=== PATIENT | female | born 1965 | race Caucasian/White ===

== ENCOUNTER 2019-04-17 11:00 | Inpatient (IN) ==
[2019-04-17] MEDS ORDERED: ALUMINUM/MAGNESIUM SUSP 30 ML UDC PO PRN (11:11)
[2019-04-17] MEDS ORDERED: ONDANSETRON INJ 2 MG/ML 2 ML VIAL IV PRN (11:11)
--- NOTE | 2019-04-17 11:18 | History & Physical Report ---
Date of Service April 17, 2019 date of surgery: 04/18/19 Assessment & Plan (1) Wound drainage: Na underwent bilateral TKA in April 2018 and initially did well, a couple months ago started having increased pain and was noted to have stretched her medial retinaculum, she underwent medial retinaculum repair on 03/09/19. 4 days ago noted serous drainage from her incision, she also has mild redness about the incision, discussed care with dr nolasco, will admit for IV antibiotics, I&D with possible poly exchange left knee plan for 04/18/19 at [facility]. will order CBC, BMP, ESR and CRP. NPO after MN tonight. (2) Status post total left knee replacement: History of Present Illness Chief Complaint: left knee drainage Primary Care Provider: Davie Calderón Ms Coffman is a 53 year old female who complains of left knee drainage that started about 4 days ago, she underwent bilateral TKA in April of 2018 and then medial retinaculum repair in February of 2019, overall initially did well and progressed well in PT. however about 4 days ago noted drainage from the middle aspect of her incision. She presents with Drainage, swelling, and stiffness on the left side. She is in post op brace, locked in full extension for day time ambulation. Pt is wearing a knee sleeve only for bed time to help control the swelling, which has decreased since last visit, however now drainage has started. Pt was to start PT today however PT requested pt be evaluated due to increased drainage over the past 4 days. she currently denies fever, chills or sweats. Allergies Allergy/AdvReac Type Severity Reaction Status Date / Time No Known Allergies Allergy Unverified 04/19/18 06:57 Home Medications Home Medications Medication Instructions Recorded Confirmed Type ACETAMINOPHEN (SB NON-ASPIRIN 1,000 mg PO Q8 #63 tab 04/21/18 Rx EXTRA STRE) Past Med/Surg History Medical History No active medical problems Surgical History History of arthroscopy of both knees Hx of cholecystectomy Status post total bilateral knee replacement Family History Unknown No problems noted. Social History marital status: Feels Safe at Home: Yes Hx Alcohol Use: Yes Hx Substance Use: No Review of Systems Review of Systems: All systems reviewed & are unremarkable except as noted in HPI & below Constitutional: no fever, no chills and no sweats Respiratory: no cough and no dyspnea Cardiovascular: no chest pain, no dyspnea and no orthopnea Gastrointestinal: no abdominal pain, no nausea and no vomiting Musculoskeletal: as per Subjective / HPI Physical Exam Physical Exam: HT: 65 in Wt: 155 lb BP: 122/82 Pulse: 78 Constitutional: WD/WN, vitals as above no acute distress Respiratory: normal respiratory effort, lungs clear to auscultation no respiratory distress, no labored breathing and does not use accessory muscles Cardiovascular: RRR, no murmur, no edema Gastrointestinal (Abdomen): normal bowel sounds, soft, nontender, no hepatosplenomegaly Musculoskeletal: left knee: active ROM 0/0/120, knee stable with valgus and varus stress, calf SNT, NVDI. able to do straight leg raise without lag. a 2mm opening in the incision with serous drainage noted, mild erythema noted around the proximal incision area, no pre patellar swelling and only mild knee effusion. no significant tenderness on exam. Results & Data Diagnostic Findings Radiographs of left knee reveal a cemented total knee replacement arthroplasty in acceptable position and alignment. No evidence of loosening or loss of fixation is noted. The patella is tracking well. ASSESSMENT: status post total knee replacement.
[2019-04-17 14:24] LABS: Basophils # (auto) 0.03 K/uL (0-0.2); Basophils % (auto) 0.2 %; Eosinophils # (auto) 0.14 K/uL (0-0.5); Eosinophils % (auto) 1.1 %; Hematocrit (blood only) 36.5 % (37-47); Hemoglobin 12.5 g/dL (12.0-16.0); Immature Granulocytes # (auto) 0.04 K/uL (0.00-0.02); Immature Granulocytes % (auto) 0.3 %; Lymphocytes # (auto) 2.96 K/uL (1.2-3.4); Lymphocytes % (auto) 23.6 %; Mean Corpuscular Hgb Conc 34.2 g/dL (32-36); Mean Corpuscular Volume 89.9 fL (80-100); Mean Platelet Volume 8.4 fL (7.4-10.4); Monocytes % (auto) 5.6 %; Neutrophils # (auto) 8.65 K/uL (1.4-6.5); Neutrophils % (auto) 69.2 %; Platelet Count 576 K/uL (130-400); RDW Coefficient of Variation 13.2 % (11.5-14.5); RDW Standard Deviation 43.2 fL (36.4-46.3); Red Blood Count 4.06 M/uL (4.2-5.4); White Blood Count 12.52 K/uL (4.8-10.8)
[2019-04-17 15:00] LABS: BUN Creatinine Ratio 15.4 (10-20); C Reactive Protein 6.71 mg/dl (0-0.29); Calcium 9.3 mg/dl (8.5-10.1); Creatinine Clr Calc Pharmacy 72.1 ml/min; Est GFR (Non-African American) 71.6; Potassium 3.5 mmol/L (3.5-5.1)
[2019-04-17] MEDS: CEFAZOLIN 1000MG 1,000 MG/7.5 ML SYR IV SCH ×2 (15:04→21:01)
[2019-04-17] MEDS: PATIENT'S HEIGHT AND/OR WEIGHT NEEDED SCH ×3 (15:26→17:57)
[2019-04-17] MEDS: D5W AND 1/2NSS 1,000 ML IV SCH (18:26)
[2019-04-18] MEDS: CEFAZOLIN 1000MG 1,000 MG/7.5 ML SYR IV SCH ×3 (06:01→21:37)
--- NOTE | 2019-04-18 12:47 | Anesthesiology Consultation ---
Date of Service April 18, 2019 Assessment & Plan Chart Review Chart Review: Acceptable Risk for Surgery Consults Requested none ASA ASA2 Proposed Anesthesia Anesthesia Type: General Risk / Benefits Reviewed With: PT / POA / Parent / Guardian, Accepts Plan and Informed Consent Obtained History Surgery Operation Date: 04/18/19 07:00 Proposed Procedures p Left Knee Incision and Drianage Superficial Wound S/P TKA, - Ovi Caceres DO s Possible Poly Exchange - Ovi Caceres DO Height/Weight Height: 1.65 m Weight: 74.162 kg Allergies Allergy/AdvReac Type Severity Reaction Status Date / Time No Known Allergies Allergy Unverified 04/18/19 13:11 Medications Home Medications Medication Instructions Recorded Confirmed Last Taken ACETAMINOPHEN (SB NON-ASPIRIN 1,000 mg PO Q8 PRN 04/17/19 Unknown EXTRA STRE) celecoxib [Celebrex] 200 mg PO BID 04/17/19 04/17/19 04/17/19 08:00 200 Active Medications Generic Name Dose Route Start Last Admin Trade Name Freq PRN Reason Stop Dose Admin Dextrose/Sodium Chloride 1,000 mls @ 15 mls/hr 04/17/19 11:15 04/17/19 18:26 D5w And 1/2nss IV 05/17/19 11:14 15 mls/hr .Q24H TA Administration Cefazolin Sodium 1,000 mg in 7.5 mls @ 2.5 mls/min 04/17/19 14:00 04/18/19 06:01 Ancef 1000mg IV 04/19/19 13:59 2.5 mls/min Q8H TA Administration NPO Date Last Intake of Fluids: 04/17/19 Time Last Intake of Fluids: 19:30 Date Last Intake of Solids: 04/17/19 Time Last Intake of Solids: 19:30 Past Medical History Medical History No active medical problems Exercise / Class Metabolic Activity II 4-5 Yardwork/Stairs/Walk up hill Past Family History Family History Unknown No problems noted. Past Surgical History Surgical History History of arthroscopy of both knees Hx of cholecystectomy Status post total bilateral knee replacement 04/2018 with spinal and pnb Past Anesthesia History No Hx of Anesthesia Complications and No Family Hx of Anesthesia Complications History of PONV No Hx of PONV and No Hx of Motion Sickness Social History Smoking Status: Current every day smoker tobacco type: cigarettes Smoking cigarettes per day: 10 x 30 years Do You Dip or Chew Tobacco: No Hx Alcohol Use: Yes Alcohol type: beer alcohol intake frequency: holidays/special occasions only Hx Substance Use: No Review of Systems Respiratory: no cough and no dyspnea Cardiovascular: no chest pain and no dyspnea on exertion Gastrointestinal: no heartburn, no nausea and no vomiting Physical Exam Vital Signs Last Vital Signs Temp 36.9 C 04/18/19 07:11 Pulse 55 L 04/18/19 07:11 Resp 16 04/18/19 07:11 BP 108/69 04/18/19 07:11 Pulse Ox 96 04/18/19 07:11 ENMT Mouth: no TMJ abnormality and no TMJ clicking Thyromental Distance: < 3.5 Finger Breadths Mallampati Class: II Mouth / Teeth: 1. MIssing crown Neck normal visual inspection; neck extension not limited Respiratory Auscultation: lungs clear to auscultation bilaterally Cardiovascular Rate/Rhythm: regular rate and regular rhythm Psychiatric Orientation: alert and oriented x 3 Testing Laboratory Results 04/17/19 14:14 04/17/19 14:14 Blood Type O Positive 04/17/19 14:14 Antibody Screen NEGATIVE 04/17/19 14:14
[2019-04-18] MEDS ORDERED: BACITRACIN INJ 50,000 UNIT VIAL ONE (12:58)
[2019-04-18] MEDS ORDERED: LIDOCAINE HCL 2% 2 ML VIAL/AMP(20MG/ML) INFIL ONE (13:00)
[2019-04-18] MEDS ORDERED: PROPOFOL IV EMULSION 10 MG/ML 20 ML VIAL IV ONE (13:00)
[2019-04-18] MEDS ORDERED: ONDANSETRON INJ 2 MG/ML 2 ML VIAL ONE (13:00)
[2019-04-18] MEDS ORDERED: MIDAZOLAM HCL 1 MG/ML 2ML VIAL ONE (13:00)
[2019-04-18] MEDS ORDERED: fentaNYL citrate 100 MCG/2 ML VIAL ONE (13:00)
[2019-04-18] MEDS ORDERED: HYDROmorphone INJ 1 MG/ML SYRINGE IV PRN (13:15)
[2019-04-18] MEDS ORDERED: ONDANSETRON INJ 2 MG/ML 2 ML VIAL IV PRN (13:15)
[2019-04-18] MEDS ORDERED: PROMETHAZINE HCL 12.5 MG in SODIUM CHLORIDE 0.9% 50 ML IV PRN (13:15)
[2019-04-18] MEDS ORDERED: PHENYLEPHRINE 100MCG/ML 5ML SYR IV PRN (13:15)
[2019-04-18] MEDS ORDERED: ATROPINE SULFATE 0.1 MG/ML 10ML SYR IV PRN (13:15)
[2019-04-18] MEDS ORDERED: ePHEDrine sulfate 50 MG/ML AMP IV PRN (13:15)
--- NOTE | 2019-04-18 13:20 | History & Physical Bridge Note ---
Date of Service April 18, 2019 History & Physical Bridge Note I have examined the patient, reviewed the History & Physical and in the interval since the performance of the History & Physical I have noted the following changes of clinical significance: no changes noted
[2019-04-18] MEDS: D5W AND 1/2NSS 1,000 ML IV SCH (13:47)
--- NOTE | 2019-04-18 14:16 | Operative Report ---
Post Operative Report Pre & Post Diagnosis Operation Date: 04/18/19 07:00 Pre-Op Diagnosis: Superficial Wound Left Knee Post-Op Diagnosis: Superficial Wound Left Knee Procedure Operation Date: 04/18/19 07:00 Actual Procedures p Left Knee Incision and Drianage Superficial Wound S/P TKA,(Left) - DO Ovi Carpio DO Surgeon Ovi Caceres DO Manager [employer] None Estimated Blood Loss 5 Findings Consistent with Post-Op Diagnosis Superficial prepatellar infection with no communication to deep joint left total knee arthroplasty Specimens None culture superficial wound Complications none Disposition Accompanied Patient To Recovery: No Disposition: Recovery Room Indications Patient presents with progressive serous drainage from the proximal one third of the incision left knee status post VMO repair for washout possible poly-change pending findings times surgery times surgery patient was noted to have superficial collection of fluid only no communication to the deep knee joint was noted patient peripherally had no pain and had no issues with range of motion this appeared to be all localized in the subcutaneous tissues and a small seroma Description of Procedure After initiation of general anesthesia the left lower extremity was incision made in the region of the proximal third of the incision dissecting down through the subcutaneous tissues there was a collection of serous fluid that did not communicate with the deep knee joint the wound was irrigated with copious sterile saline solution via 9 L of bacitracin impregnated sterile saline wound was irrigated superficial sutures were removed the deep sutures of FiberWire that were visible or removed no communication with the joint was noted the wound was irrigated with copious muscle sterile saline solution subcu was closed with 2-0 Vicryl skin was closed with skin clips sterile compressive dressings placed patient taken recovery in stable condition. I attest to the content of the Intraoperative Record and any orders documented therein. Any exceptions are noted below.
[2019-04-18] MEDS: fentaNYL citrate 100 MCG/2 ML VIAL IV PRN ×4 (14:23→14:38)
--- NOTE | 2019-04-18 15:03 | Anesthesiology Progress Note ---
Date of Service April 18, 2019 Anesthesia Post Procedure Vital Signs Vital Signs: Temp Pulse Resp BP BP Pulse Ox 04/18/19 14:50 48 L 12 107/59 L 99 04/18/19 14:40 50 L 18 113/70 100 04/18/19 14:30 72 12 118/75 100 04/18/19 14:20 36.5 C 78 16 122/86 100 04/18/19 13:19 37.0 C 60 18 124/70 97 04/18/19 07:11 36.9 C 55 L 16 108/69 96 04/17/19 23:04 36.7 C 69 16 119/71 96 Pain Intensity Left Knee: Pain Intensity: 5 Transfer of Care Handoff Completed per policy Notes Mental Status: alert / awake / arousable Patient Amnestic to Procedure: Yes Nausea / Vomiting: adequately controlled Pain: adequately controlled Airway Patency, RR, SpO2: stable & adequate BP & HR: stable & adequate Hydration State: stable & adequate Anesthetic Complications: no major complications apparent
[2019-04-18] MEDS ORDERED: BISACODYL 10 MG SUPP PR PRN (15:12)
[2019-04-18] MEDS ORDERED: NALOXONE HCL 0.4 MG/1 ML VIAL/CARP IV PRN (15:12)
[2019-04-18] MEDS ORDERED: HYDROmorphone INJ 0.5 MG/0.5 ML SYR IV PRN (15:12)
[2019-04-18] MEDS ORDERED: MAGNESIUM HYDROXIDE SUSP 30 ML UDC PO PRN (15:12)
[2019-04-18] MEDS: OXYCODONE HCL IR 5 MG TAB (IMMEDIATE RELEASE) PO PRN ×2 (15:49→21:36)
[2019-04-18] MEDS: SODIUM CHLORIDE 0.9% 1000ML 1,000 ML IV SCH ×2 (15:50→23:13)
[2019-04-18] MEDS: KETOROLAC 30 MG/ML VIAL IV SCH ×2 (17:00→23:14)
[2019-04-18] MEDS: ACETAMINOPHEN 500 MG TAB PO SCH (21:36)
[2019-04-18] MEDS: DOCUSATE SODIUM 100 MG CAP PO SCH (21:37)
[2019-04-18] MEDS: SENNA 8.6 MG TAB PO SCH (21:37)
[2019-04-18] MEDS: ASPIRIN 81 MG ECTAB PO SCH (21:37)
[2019-04-19] MEDS: ACETAMINOPHEN 500 MG TAB PO SCH ×3 (05:35→21:25)
[2019-04-19] MEDS: KETOROLAC 30 MG/ML VIAL IV SCH ×4 (05:35→23:30)
[2019-04-19] MEDS: CEFAZOLIN 1000MG 1,000 MG/7.5 ML SYR IV SCH ×3 (05:36→23:30)
[2019-04-19 07:17] LABS: Hematocrit (blood only) 35.1 % (37-47); Hemoglobin 11.8 g/dL (12.0-16.0); Mean Corpuscular Hgb Conc 33.6 g/dL (32-36); Mean Corpuscular Volume 90.9 fL (80-100); Mean Platelet Volume 8.8 fL (7.4-10.4); Platelet Count 577 K/uL (130-400); RDW Coefficient of Variation 13.3 % (11.5-14.5); RDW Standard Deviation 43.9 fL (36.4-46.3); Red Blood Count 3.86 M/uL (4.2-5.4)
[2019-04-19 07:50] LABS: BUN Creatinine Ratio 17.7 (10-20); Calcium 8.6 mg/dl (8.5-10.1); Creatinine Clr Calc Pharmacy 63.8 ml/min; Est GFR (African American) 71.5; Est GFR (Non-African American) 61.7; Potassium 4.5 mmol/L (3.5-5.1)
--- NOTE | 2019-04-19 08:17 | Anesthesiology Progress Note ---
Date of Service April 19, 2019 Anesthesia Post Procedure Vital Signs Vital Signs: Temp Pulse Pulse Resp BP Pulse Ox 04/19/19 08:08 36.6 C 51 L 16 119/67 97 04/19/19 03:11 36.5 C 69 14 93/59 L 94 04/18/19 22:57 37.0 C 77 16 107/62 95 04/18/19 19:35 36.9 C 64 16 104/60 94 04/18/19 18:07 37.4 C 79 16 118/68 96 04/18/19 17:05 36.9 C 58 L 16 117/60 98 04/18/19 16:14 36.5 C 60 16 102/66 98 04/18/19 15:38 36.5 C 61 16 97/64 L 100 04/18/19 15:10 36.9 C 56 L 16 110/72 99 04/18/19 15:05 47 L 15 101/59 L 98 04/18/19 15:00 36.2 C L 47 L 15 96/61 L 98 04/18/19 14:50 48 L 12 107/59 L 99 04/18/19 14:40 50 L 18 113/70 100 04/18/19 14:30 72 12 118/75 100 04/18/19 14:20 36.5 C 78 16 122/86 100 04/18/19 13:19 37.0 C 60 18 124/70 97 Pain Intensity Left Knee: Pain Intensity: 0 Notes Mental Status: alert / awake / arousable Patient Amnestic to Procedure: Yes Nausea / Vomiting: adequately controlled Pain: adequately controlled Airway Patency, RR, SpO2: stable & adequate BP & HR: stable & adequate Hydration State: stable & adequate Anesthetic Complications: no major complications apparent
[2019-04-19] MEDS: MULTIVITAMIN TAB PO SCH (08:51)
[2019-04-19] MEDS: DOCUSATE SODIUM 100 MG CAP PO SCH ×2 (08:51→21:24)
[2019-04-19] MEDS: ASPIRIN 81 MG ECTAB PO SCH ×2 (08:51→21:24)
[2019-04-19] MEDS: D5W AND 1/2NSS 1,000 ML IV SCH (12:37)
[2019-04-19] MEDS ORDERED: Nursing to Pharmacy Communication ONE (12:37)
--- NOTE | 2019-04-19 15:09 | Orthopedic Progress Note ---
Date of Service April 19, 2019 Assessment & Plan (1) Wound drainage: POD 1 s/p I/D Infected wound s/p Left TKA (Superficial) Cx as noted above. Discussed case with /Manohar Ruiz PAC. Plan to continue IV antibx for now and follow cultures. Will consult ID team as well per Dr Caceres. Continue WBAT with brace. May be OOB as tolerated. Contine DVT Prophylaxis and current pain management. Subjective POD 1 s/p I/D Left knee wound. Pt sitting up in bed. Awake, alert, oriented x 3. No complaints at this time. Pain controlled. Discussed cx results thus far. Physical Exam Physical Exam: Dressings C/D/I. NV intact. Toes mobile. Results & Data Vital Signs (Past 12 Hours) Vital Signs Temp Pulse Resp BP Pulse Ox 04/19/19 08:08 36.6 C 51 L 16 119/67 97 04/19/19 03:11 36.5 C 69 14 93/59 L 94 Diagnostic Findings Microbiology 04/18/19 14:03 Knee,Left Gram Stain - Final 04/18/19 14:03 Knee,Left Aerobic and Anaerobic Culture - Preliminary Staphylococcus aureus Laboratory Results WBC 7.90 K/uL (4.8-10.8) 04/19/19 06:48 RBC 3.86 M/uL (4.2-5.4) L 04/19/19 06:48 Hgb 11.8 g/dL (12.0-16.0) L 04/19/19 06:48 Hct 35.1 % (37-47) L 04/19/19 06:48 MCV 90.9 fL (80-100) 04/19/19 06:48 MCH 30.6 pg (25-34) 04/19/19 06:48 MCHC 33.6 g/dL (32-36) 04/19/19 06:48 RDW Std Deviation 43.9 fL (36.4-46.3) 04/19/19 06:48 RDW Coeff of Amy 13.3 % (11.5-14.5) 04/19/19 06:48 Plt Count 577 K/uL (130-400) H 04/19/19 06:48 MPV 8.8 fL (7.4-10.4) 04/19/19 06:48 Immature Gran % (Auto) 0.3 % 04/17/19 14:14 Neut % (Auto) 69.2 % 04/17/19 14:14 Lymph % (Auto) 23.6 % 04/17/19 14:14 [place] % (Auto) 5.6 % 04/17/19 14:14 Eos % (Auto) 1.1 % 04/17/19 14:14 Baso % (Auto) 0.2 % 04/17/19 14:14 Immature Gran # (Auto) 0.04 K/uL (0.00-0.02) H 04/17/19 14:14 Neut # (Auto) 8.65 K/uL (1.4-6.5) H 04/17/19 14:14 Lymph # (Auto) 2.96 K/uL (1.2-3.4) 04/17/19 14:14 [place] # (Auto) 0.70 K/uL (0.11-0.59) H 04/17/19 14:14 Eos # (Auto) 0.14 K/uL (0-0.5) 04/17/19 14:14 Baso # (Auto) 0.03 K/uL (0-0.2) 04/17/19 14:14 ESR > 90 mm/hr (0-21) H 04/17/19 14:14 Sodium 140 mmol/L (136-145) 04/19/19 06:48 Potassium 4.5 mmol/L (3.5-5.1) D 04/19/19 06:48 Chloride 109 mmol/L (98-107) H 04/19/19 06:48 Carbon Dioxide 27 mmol/L (21-32) 04/19/19 06:48 Anion Gap 4.0 (3-11) 04/19/19 06:48 BUN 18 mg/dl (7-18) 04/19/19 06:48 Creatinine 1.04 mg/dl (0.6-1.2) 04/19/19 06:48 Est Cr Clr Drug Dosing 63.8 ml/min 04/19/19 06:48 Est GFR ( Amer) 71.5 04/19/19 06:48 Est GFR (Non-Af Amer) 61.7 04/19/19 06:48 BUN/Creatinine Ratio 17.7 (10-20) 04/19/19 06:48 Glucose 87 mg/dl (70-99) 04/19/19 06:48 Calcium 8.6 mg/dl (8.5-10.1) 04/19/19 06:48 C-Reactive Protein 6.71 mg/dl (0-0.29) H 04/17/19 14:14 Blood Type O Positive 04/17/19 14:14 Antibody Screen NEGATIVE 04/17/19 14:14
--- NOTE | 2019-04-19 16:00 | Infectious Disease Consult ---
Date of Consultation April 19, 2019 Assessment & Plan (1) Postoperative infection of knee: Patient with superficial appearing infection left knee with Staph aureus, sensitivities pending. Clinical response to cefazolin suggest will be MSSA. Should have sensitivities tomorrow morning, and sjould be able to transition to oral antibiotic. Discussed with orthopedics. Will follow. (2) Staph aureus infection: History of Present Illness Reason for Consultation: Superficial knee wound infection Attending Physician: Ovi Caceres DO History of Present Illness 53-year-old female, smoker but otherwise in good health, he underwent left knee replacement. She subsequently left patellar instability requiring surgical repair. Separately developed redness, swelling, drainage from her surgical incision, and was seen and admitted to the hospital for further management. She required surgical debridement of the finding of what appears to be relatively superficial infection. Patient notes that preoperatively she was started on cefazolin and then noted significant improvement in her local infection prior to surgery. Operative cultures now growing staph aureus, sensitivities are pending. Patient denies any significant associated fever or chills. Otherwise feeling reasonably well apart from knee pain. Allergies Allergy/AdvReac Type Severity Reaction Status Date / Time No Known Allergies Allergy Unverified 04/18/19 13:11 Home Medications Home Medications Medication Instructions Recorded Confirmed Type ACETAMINOPHEN (SB NON-ASPIRIN 1,000 mg PO Q8 PRN 04/17/19 History EXTRA STRE) celecoxib [Celebrex] 200 mg PO BID 04/17/19 04/17/19 History Patient History Medical History No active medical problems Surgical History History of arthroscopy of both knees Hx of cholecystectomy Status post total bilateral knee replacement 04/2018 with spinal and pnb Family History Unknown No problems noted. Social History Preferred Language: Panamanian Communication Ability: Effective Head Grease Maker Required: No Beliefs That Will Affect Care: None marital status: Current Living Situation: Spouse Other Information That Helps Us Care for You: No Feels Safe at Home: Yes Smoking Status: Current every day smoker Tobacco Type: cigarettes Cigarettes Per Day: 10 x 30 years Do You Dip or Chew Tobacco: No Tobacco Cessation Education Requested by Patient: No Hx Alcohol Use: Yes Alcohol type: beer Hx Substance Use: No Review of Systems Review of Systems: All systems reviewed & are unremarkable except as noted in HPI & below Physical Exam Constitutional: WD/WN, vitals as above comfortable; no acute distress Eyes: PERRL, conjunctivae normal, anicteric sclerae ENMT: external ear and nose normal, oropharynx normal Neck: trachea midline, no thyromegaly neck nontender Respiratory: normal respiratory effort, lungs clear to auscultation normal percussion; does not use accessory muscles Cardiovascular: Rate/Rhythm: regular rate and regular rhythm Heart Sounds: normal S1 and normal S2; no gallop, no murmur and no cardiac rub Vessels: normal peripheral pulses; no JVD Gastrointestinal (Abdomen): normal bowel sounds, soft, nontender, no hepatosplenomegaly Musculoskeletal: no cyanosis or clubbing, extremities motor strength 5/5 Spine: thoracic spine normal to inspection and lumbar spine normal to inspection; no cervical spinal tenderness Skin: no rashes, warm and dry normal turgor surgical wound dressing in place Neurologic: patellar DTR's 2+ bilat, sensation intact no focal motor deficits Psychiatric: A+Ox3, euthymic affect Orientation: cooperative Lymphatic: no cervical or axillary lymphadenopathy no inguinal lymphadenopathy Results & Data Vital Signs (Past 12 Hours) Vital Signs Temp Pulse Resp BP Pulse Ox 04/19/19 08:08 36.6 C 51 L 16 119/67 97 Laboratory Results Short CBC 04/19/19 Range/Units 06:48 WBC 7.90 (4.8-10.8) K/uL Hgb 11.8 L (12.0-16.0) g/dL Hct 35.1 L (37-47) % Plt Count 577 H (130-400) K/uL BMP 04/19/19 06:48 Sodium 140 Potassium 4.5 D Chloride 109 H Carbon Dioxide 27 BUN 18 Creatinine 1.04 Glucose 87 Calcium 8.6 Diagnostic Findings Microbiology 04/18/19 14:03 Knee,Left Gram Stain - Final 04/18/19 14:03 Knee,Left Aerobic and Anaerobic Culture - Preliminary Staphylococcus aureus
[2019-04-19] MEDS: SENNA 8.6 MG TAB PO SCH (21:24)
[2019-04-20] MEDS: ACETAMINOPHEN 500 MG TAB PO SCH ×2 (05:44→13:45)
[2019-04-20] MEDS: KETOROLAC 30 MG/ML VIAL IV SCH ×2 (05:44→11:49)
--- NOTE | 2019-04-20 08:02 | Orthopedic Progress Note ---
Date of Service April 20, 2019 Assessment & Plan (1) Wound drainage: POD 2 s/p I/D Infected wound s/p Left TKA (Superficial) Cx as noted above. appreciate dr belcher input, culture Staph aureus, sensitivities pending. as per dr belcher, Clinical response to cefazolin suggest will be MSSA. Should have sensitivities tomorrow morning, and will hopefully be able to transition to oral antibiotic. recheck later today for poss d/c on PO Abx Continue WBAT with brace. May be OOB as tolerated. Contine DVT Prophylaxis and current pain management. Subjective POD 2 s/p I/D Left knee wound. Pt sitting up in bed. Awake, alert, oriented x 3. No complaints at this time. Pain controlled. denies CP/SOB, denies F/Chills Review of Systems Review of Systems: All systems reviewed & are unremarkable except as noted in HPI & below Constitutional: no fever, no chills and no sweats Physical Exam Physical Exam: Vital Signs Temp Pulse Resp BP BP Pulse Ox 04/19/19 23:20 36.5 C 65 16 114/72 96 04/19/19 08:08 36.6 C 51 L 16 119/67 97 Intake and Output 04/19/19 04/20/19 04/20/19 22:59 06:59 14:59 Intake Total 440 / 2822.75 50 / 2822.75 Balance 440 / 2222.75 50 / 2222.75 Intake: Oral 440 / 1185 50 / 1185 Other: # Unmeasured Voi ds 2 1 Constitutional: WD/WN, vitals as above no acute distress Musculoskeletal: left knee dressing clean and dry, neda intact, no drainage, no erythema. calf SNT, NVDI, able to wiggle toes/ankle without pain. no thigh pain Results & Data Vital Signs (Past 12 Hours) Vital Signs Temp Pulse Resp BP Pulse Ox 04/19/19 23:20 36.5 C 65 16 114/72 96 Laboratory Results Laboratory Results WBC 7.90 K/uL (4.8-10.8) 04/19/19 06:48 RBC 3.86 M/uL (4.2-5.4) L 04/19/19 06:48 Hgb 11.8 g/dL (12.0-16.0) L 04/19/19 06:48 Hct 35.1 % (37-47) L 04/19/19 06:48 MCV 90.9 fL (80-100) 04/19/19 06:48 MCH 30.6 pg (25-34) 04/19/19 06:48 MCHC 33.6 g/dL (32-36) 04/19/19 06:48 RDW Std Deviation 43.9 fL (36.4-46.3) 04/19/19 06:48 RDW Coeff of Amy 13.3 % (11.5-14.5) 04/19/19 06:48 Plt Count 577 K/uL (130-400) H 04/19/19 06:48 MPV 8.8 fL (7.4-10.4) 04/19/19 06:48 Immature Gran % (Auto) 0.3 % 04/17/19 14:14 Neut % (Auto) 69.2 % 04/17/19 14:14 Lymph % (Auto) 23.6 % 04/17/19 14:14 [place] % (Auto) 5.6 % 04/17/19 14:14 Eos % (Auto) 1.1 % 04/17/19 14:14 Baso % (Auto) 0.2 % 04/17/19 14:14 Immature Gran # (Auto) 0.04 K/uL (0.00-0.02) H 04/17/19 14:14 Neut # (Auto) 8.65 K/uL (1.4-6.5) H 04/17/19 14:14 Lymph # (Auto) 2.96 K/uL (1.2-3.4) 04/17/19 14:14 [place] # (Auto) 0.70 K/uL (0.11-0.59) H 04/17/19 14:14 Eos # (Auto) 0.14 K/uL (0-0.5) 04/17/19 14:14 Baso # (Auto) 0.03 K/uL (0-0.2) 04/17/19 14:14 ESR > 90 mm/hr (0-21) H 04/17/19 14:14 Sodium 140 mmol/L (136-145) 04/19/19 06:48 Potassium 4.5 mmol/L (3.5-5.1) D 04/19/19 06:48 Chloride 109 mmol/L (98-107) H 04/19/19 06:48 Carbon Dioxide 27 mmol/L (21-32) 04/19/19 06:48 Anion Gap 4.0 (3-11) 04/19/19 06:48 BUN 18 mg/dl (7-18) 04/19/19 06:48 Creatinine 1.04 mg/dl (0.6-1.2) 04/19/19 06:48 Est Cr Clr Drug Dosing 63.8 ml/min 04/19/19 06:48 Est GFR ( Amer) 71.5 04/19/19 06:48 Est GFR (Non-Af Amer) 61.7 04/19/19 06:48 BUN/Creatinine Ratio 17.7 (10-20) 04/19/19 06:48 Glucose 87 mg/dl (70-99) 04/19/19 06:48 Calcium 8.6 mg/dl (8.5-10.1) 04/19/19 06:48 C-Reactive Protein 6.71 mg/dl (0-0.29) H 04/17/19 14:14 Blood Type O Positive 04/17/19 14:14 Antibody Screen NEGATIVE 04/17/19 14:14 Microbiology 04/18/19 14:03 Knee,Left Gram Stain - Final 04/18/19 14:03 Knee,Left Aerobic and Anaerobic Culture - Preliminary Staphylococcus aureus
[2019-04-20] MEDS: CEFAZOLIN 1000MG 1,000 MG/7.5 ML SYR IV SCH ×2 (08:06→15:43)
[2019-04-20] MEDS: MULTIVITAMIN TAB PO SCH (09:01)
[2019-04-20] MEDS: ASPIRIN 81 MG ECTAB PO SCH (09:01)
[2019-04-20] MEDS: DOCUSATE SODIUM 100 MG CAP PO SCH (09:01)
--- NOTE | 2019-04-20 19:55 | Discharge Summary ---
Date of Service date of discharge: April 20, 2019 date of admission: 04/18/19 Admission HPI Per Admitting Provider Ms Coffman is a 53 year old female who complains of left knee drainage that started about 4 days ago, she underwent bilateral TKA in April of 2018 and then medial retinaculum repair in February of 2019, overall initially did well and progressed well in PT. however about 4 days ago noted drainage from the middle aspect of her incision. She presents with Drainage, swelling, and stiffness on the left side. She is in post op brace, locked in full extension for day time ambulation. Pt is wearing a knee sleeve only for bed time to help control the swelling, which has decreased since last visit, however now drainage has started. Pt was to start PT today however PT requested pt be evaluated due to increased drainage over the past 4 days. she currently denies fever, chills or sweats. Principal Diagnosis superficial knee wound left total knee replacement Discharge Exam Vital Signs Temp Pulse Pulse Resp BP BP Pulse Ox 04/20/19 15:30 36.7 C 55 L 16 118/74 97 04/20/19 15:26 36.5 C 55 L 64 16 114/72 118/72 98 04/20/19 13:39 36.5 C 55 L 64 16 114/72 118/72 98 04/20/19 08:08 36.5 C 55 L 16 118/72 98 04/19/19 23:20 36.5 C 65 16 114/72 96 Intake and Output 04/20/19 04/20/19 04/20/19 06:59 14:59 22:59 Intake Total 50 / 2822.75 Balance 50 / 2222.75 Intake: Oral 50 / 1185 Other: # Unmeasured Voids 1 Weight 74.162 kg 74.162 kg Patient Weight 04/21/19 06:59 Weight 74.162 kg Constitutional WD/WN, vitals as above no acute distress Musculoskeletal left knee: NVDI, calf SNT, negative nhan sign. DP palpable, able to wiggle toes/ankle movement without difficulty. Incision clean dry and intact, no drainage noted neda intact. expected post- operative bruising noted. Discharge Data Allergies Allergy/AdvReac Type Severity Reaction Status Date / Time No Known Allergies Allergy Unverified 04/18/19 13:11 Consultations 04/18/19 15:12 Consult Case Management - Discharge Planning Routine 04/19/19 12:09 Consult Infectious Diseases Routine Procedures Performed Operation Date: 04/18/19 07:00 Actual Procedures p Left Knee Incision and Drdougie Superficial Wound Status Post Total Knee Arthroplasty(Left) - Ovi Caceres DO Hospital Course (1) Wound drainage: POD 2 s/p I/D Infected wound s/p Left TKA (Superficial) Cx as noted above. appreciate dr stokes input, culture Staph aureus, As per dr stokes, Clinical response to cefazolin suggest will be MSSA, recommend discharge on Keflex. Continue WBAT with brace. May be OOB as tolerated. Contine DVT Prophylaxis and current pain management. Total Time Total Time Spent Total Time Spent (In Minutes): 20 Total Time Includes: Examination of the Patient, Discharge Planning and Medication Reconciliation Discharge Plan Discharge Items Patient Disposition: Home - Self-Care Reason For Visit: SUPERFICIAL WOUND W/INFECTION Discharge Diagnosis: Left knee wound infection. Discharge Goals: Decrease discomfort and Improve function Activity: Per 'Additional Instructions' section Weightbearing: Left weightbearing Weightbearing Comment: as tolerated with brace on at all times when ambulating Non-emergency contact: Surgeon Call non-emergency contact if: your pain is not controlled, your temperature is above 101.5, your wound has increased redness and your wound has increased drainage Follow-up/Referrals: Davie Calderón [Primary Care Provider] - Diet: Regular Addtl Provider Instructions: Keep dressing clean and dry. Change dressing daily. Use 4x4 gauze and jenelle wrap to cover. Ok to shower in 72 hours from the day of surgery. Do not soak the wound. No tub baths. Continue use of brace until seen in the office for your return visit. Take antibiotics until finished. Call the office if you have fever 101.5, Redness of wound, increased drainage from the wound, increased pain. [phone] Prescriptions: New aspirin [Ecotrin Low Strength] 81 mg Tablet,Delayed Release (Dr/Ec) 81 mg PO BID 14 Days Qty: 28 RF: 0 acetaminophen [Tylenol Extra Strength] 500 mg Tablet 1,000 mg PO Q8 5 Days Qty: 30 RF: 0 cephalexin 500 mg capsule 500 mg PO QID 10 Days Qty: 40 RF: 0 oxycodone 5 mg Tablet 5 - 10 mg PO Q6H PRN (Reason: pain) Qty: 30 RF: 0 Continued celecoxib [Celebrex] 200 mg capsule 200 mg PO BID RF: 0 Discontinued ACETAMINOPHEN (SB NON-ASPIRIN EXTRA STRE) 500 MG tablet 1,000 mg PO Q8 PRN (Reason: Pain) RF: 0 Stand-Alone Forms: [facility], Opioid Pain Management Discharge Orders: Discharge Order (Routine); Ordered 04/20/19 Ordered By: Mick Salinas Admission Data Admit Date/Time: 04/17/19 13:23 Attending Provider: Ovi Caceres Admit Provider: Ovi Caceres Primary Care Provider: Davie Calderón Other Providers: Mikey Stokes Service: Surgical Services Other Interventions: Discharge Summary Assessment (RN) Last Done: 04/20/19 15:26 DC Date/Time DO NOT enter until pt leaves facility: 04/20/19 16:05
== END 2019-04-20 16:05 | disposition home or self-care (01) | DRG 581 ==
LOC: 3W 13:23